=== PATIENT | male | born 1935 | race Caucasian/White ===

== ENCOUNTER 2017-10-11 06:40 | Day surgery (SDC) ==
[2017-10-11] MEDS ORDERED: LIDOCAINE 1% 20 ML MDV ID ONE (07:10)
[2017-10-11] MEDS ORDERED: ZOFRAN 4 MG/2 ML IVP STA (07:18)
[2017-10-11] MEDS ORDERED: ZOFRAN 4 MG/2 ML IVP ONE (07:19)
[2017-10-11] MEDS ORDERED: VERSED ONE (10:28)
[2017-10-11] MEDS ORDERED: DIPRIVAN 20 ML VIAL IVP ONE (10:28)
[2017-10-11 11:27] VITALS: BP 124/67; TEMP 98.4
--- NOTE | 2017-10-11 15:46 | OP ---
INDICATIONS FOR PROCEDURE: 82-year-old gentleman presents for colonoscopy exam. He was having some right flank pain. He last had a colonoscopy in 2001. MEDICATIONS: SEE ANESTHESIA NOTES. PROCEDURE: COLONOSCOPY. REPORT: The risks, benefits, alternatives and limitations were discussed in detail with the patient. Informed consent was obtained. After adequate sedation was achieved, a digital rectal exam revealed good tone, no masses. The colonoscope was introduced into the rectum and advanced under direct visual guidance to the cecum. The cecum was identified by the appendiceal orifice and IC valve. I then slowly withdrew the scope in a circumferential manner examining the mucosa quite carefully. I looked on the proximal and distal side of folds and flexures as best as possible. I was able to retroflex the scope in the right colon and the left colon to increase visualization. The colonic mucosa was unremarkable except for a couple of diverticula in the ascending colon and a couple diverticula noted in the sigmoid colon. No other abnormalities were noted including on retroflex view of the anal canal. The prep was good. The withdrawal time was 6 minutes and 6 seconds. The patient tolerated the procedure well with stable vital signs and pulse oximetry throughout. IMPRESSION: 1. NORMAL COLONOSCOPY EXAM RECOMMENDATIONS: 1. Future colonoscopies on an as needed only basis. 2. No further GI investigation. 3. Of note, prior to his examination today while in the holding area, abdominal discomfort similar to his prior pain he complained of. He did not catheterize himself this morning after giving the IV fluids. In preop his abdominal discomfort became worse. He was subsequently catheterized with over 800 cc of urine being obtained and his abdominal pain subsided thus, inadequate bladder emptying may be the source of his abdominal discomfort. I reinforced the need to continue with the self-catheterizations. 4. One thing we also discussed along with his prior to colonoscopy was his pancreatic cyst. We discussed the differential diagnosis of pancreatic cyst and possible cancer risk with the cyst. He declines ever having surgical intervention given his advanced age and health thus he declines surveillance of the cyst. We discussed the risks, benefits and alternatives of surveillance along with pancreatic surgery. He expressed good understanding and he would not want that intervention. He had been thinking about this since our office visit and he wanted to express his thoughts today. 5. Will see him back in the office as needed. cc: Dr. Dora MUKHERJEE
== END 2017-10-11 11:44 | disposition home or self-care (01) ==
LOC: SURG 06:40
PROVIDERS: ATTEND Internal Medicine Gastroenterology
DX: R10.9 Unspecified abdominal pain (principal); K86.2 Cyst of pancreas; N32.89 Other specified disorders of bladder; Z96.0 Presence of urogenital implants

== ENCOUNTER 2018-02-06 15:46 | Outpatient (CLI) | END 2018-02-06 15:47 | disposition home or self-care (01) | LOC: CAR 15:46 | PROVIDERS: ATTEND Family Medicine | DX: R42 Dizziness and giddiness (principal); R53.1 Weakness; R53.83 Other fatigue; Z85.51 Personal history of malignant neoplasm of bladder; Z78.9 Other specified health status | CPT/HCPCS: 36415; 80053; 81001; 84436; 84443; 84479; 85025; 87086; 93005; 93010 ==

== ENCOUNTER 2018-06-20 11:32 | Outpatient (CLI) ==
--- NOTE | 2018-06-20 14:07 | US ---
Exam: Ellsworth-scale and color ultrasonographic evaluation of the carotid arteries with duplex and spect ral Doppler waveform characterization. Comparison: None available. Reason for exam: Dizziness. FINDINGS: Atheromatous plaque is seen in the right common and proximal internal carotid arteries. Right ECA measures 0.6 meters per second Right CCA measures 0.6 / 0.1 meters per second. Right internal carotid artery peak systolic velocity measures 1 meter per second Right internal carotid artery/CCA PSV ratio measures 1.5 Right internal carotid artery end-diastolic velocity measures 0.2 meters per second There is normal antegrade right vertebral artery flow. There is a moderate amount of atheromatous plaque seen in the distal common carotid artery and proxim al left internal carotid artery at the level of the bulb. Left ECA measures 0.5 cm/sec Left CCA measures 0.7 / 0.1 cm/sec. Left internal carotid artery peak systolic velocity measures 0.6 meters per second Left internal carotid artery/CCA PSV ratio measures 0.8 Left internal carotid artery end-diastolic velocity measures 0.1 meters per second There is normal left antegrade vertebral artery flow. Impression: 1. No significant stenotic disease is seen by peak systolic velocity measurements in either the right or left internal carotid arteries. 2. Moderate amount of atheromatous plaque is seen in the proximal left internal carotid artery by gr ay scale imaging. 3. There is normal antegrade vertebral artery flow bilaterally.
== END 2018-06-20 11:33 | disposition home or self-care (01) ==
LOC: RAD 11:32
PROVIDERS: ATTEND Family Medicine
DX: R53.1 Weakness (principal); R42 Dizziness and giddiness; R06.02 Shortness of breath; R09.89 Other specified symptoms and signs involving the circulatory and respiratory systems; D64.9 Anemia, unspecified; N18.3 Chronic kidney disease, stage 3 (moderate); R79.89 Other specified abnormal findings of blood chemistry
CPT/HCPCS: 36415; 80053; 82607; 84443; 85025; 93005; 93010

== ENCOUNTER 2018-06-23 15:52 | Outpatient (RCR) ==
--- NOTE | 2018-06-27 12:39 | RS.OPPTEV2 ---
Date of Note: 06/23/18 Visit #: 1 Date of Evaluation: 06/23/18 Payer Source: Insurance Surgery Performed?: No Treatment Diagnosis: weakness, dizziness History of Condition/Mechanism of Injury:: pt states that he fell approx 6 weeks ago. pt lives with . pt reports that he is dizzy all the time. Prior Level of Function.....Patient was independent with: ADL's, Self Care, Caregiving, Ambulation/Mobility, Community Integration/Access Functional Limitations: Pushing, Pulling, Lifting, Carrying, Standing, Bending, Squatting, Ambulation, Community Access/Integration Current Subjective/complaints:: pt states that he is dizzy all the time. He reports that MD is doing more tests to check cardiac status due to dizziness. pt reports that he is still driving. Treatment Side (optional): N/A *Precautions: fall precautions Medical History Medical History: Hypertension, Arthritis, Cancer (bladder) Smoking Status: Never smoker Diagnostic Testing/Imaging:: pt has undergone testing per MD. Hx Home Medications: sodium bicarbonate, pepcid Patient's Goals: get stronger and decrease dizziness Functional Outcome Measure Dynamic Gait: 14 - G Codes & Severity Modifier G Codes & Modifier: mobility walking and moving around: CL. mobility walking and moving around CJ Source of G Code score: gait dynamic index Observation - Observation Inspection: slight nystagmus noted with cervical ext with head to right Posture: Forward Head, Rounded Shoulders, Increased Thoracic Kyphosis, Decreased Lumbar Lordosis Handedness: Right Gait - Gait Pattern General Gait Pattern Observation: Ataxic Gait, Crouched Gait Gait Comments: pt amb with flexed posture, decreased step length with ataxic gait pattern with decreased heel strike/toe off pattern. General Range of Motion: BUE WFL's. BLE WFL's Muscle Strength: BUE strength 4+/5. BLE strength 4/5 hip flex, 4+/5 knee flex, 4+/5 ankle Df/PF Sensation - Sensation Right Upper Extremity: Intact/Normal Left Upper Extremity: Intact/Normal Right Lower Extremity: Intact/Normal Left Lower Extremity: Intact/Normal Balance - Sitting Balance Static Sitting Balance: Good Dynamic Sitting Balance: Fair - Standing Balance Static Standing Balance: Fair Dynamic Standing Balance: Poor - Comments Balance Assessment Comments: dyn gait index which is consistent with mod risk of falls. pt c/o increased dizziness with head turns as well as sup to sit. pt with increased dizziness with cervical flex, Interventions - Exercise/Activities/Manual Therapy Exercises/Activities: pt performed AP, resisted hip abd, isometric hip add, LAQ , seated hip flex with green t band. Manual Therapy: n/a HOME EXERCISE PROGRAM: pt given written HEP including: isometric hip add, AP,LAQ , seated hip flex, resisted hip abd. pt given green theraband - Charges Timed Code Treatment Minutes: 51 Total Treatment Time: 62 Procedures billed for this date of service:: eval med EVALUATION COMPLEXITY LEVEL EVALUATION COMPLEXITY LEVEL: HISTORY: Medium (HTN, OA, ataxia), EXAM OF BODY SYSTEMS: Medium (balance, gait, strength, dizziness), CLINICAL PRESENTATION: Medium (evolving), CLINICAL DECISION MAKING: Medium Assessment Assessment: pt presents with decreased strength, balance as well as gait ataxia. pt is at high risk of falls per dyn gait index scale. Feel pt would benefit from skilled PT for therex for LE strengthening, balance, gait training to improve functional mobility and decrease risk of falls. Patient Education: Home Exercise Program, Education of Plan of Care Rehab Potential: Good Short Term Goals Goal #1: pt demonstrate improved strength BLE 4 to 4+/5 Goal to be met by: 07/07/18 Goal #2: pt amb in dept with no loss of balance amb around and stepping over objects Goal to be met by: 07/07/18 Goal #3: Improve dyn stand balance as noted by dyn gait index score 19/24 Goal to be met by: 07/07/18 Goal #4: pt independent with initial HEP Goal to be met by: 07/07/18 [employer] Goals Goal #1: dyn gait index score 21/24 to be consistent with low risk of falls. Goal to be met by: 07/21/18 Goal #2: pt amb community distances with no LOB Goal to be met by: 07/21/18 Goal #3: no reports of falls at home, improved ability to perform tasks at home Goal to be met by: 07/21/18 Goal #4: pt able to amb with head turns with no LOB Goal to be met by: 07/21/18 Plan - Treatment to be Provided Procedures: Therapeutic Exercises, Therapeutic Activity, Gait Training, Patient Education Modalities: No Modalities - Treatment Plan Frequency: 2 X week Duration: 4 weeks ORDER # VISITS AND/OR THROUGH DATE: 07/21/18 - Treatment Code (1) Ataxia Code(s): R27.0 - ATAXIA, UNSPECIFIED (2) Muscle weakness Code(s): M62.81 - MUSCLE WEAKNESS (GENERALIZED) (3) At risk for falls Code(s): R29.6 - REPEATED FALLS
--- NOTE | 2018-06-28 16:15 | RS.CXNS ---
Date of scheduled appointment: 06/28/18 Type: Cancel (Patient called to reported he was not coming to therapy. Stated he was "going back to bed".)
== END 2018-07-21 23:59 ==
PROVIDERS: ATTEND Family Medicine
DX: R53.1 Weakness (principal); R42 Dizziness and giddiness; R27.0 Ataxia, unspecified; M62.81 Muscle weakness (generalized); R29.6 Repeated falls

== ENCOUNTER 2018-07-04 06:24 | Outpatient (CLI) ==
--- NOTE | 2018-07-04 12:50 | ECHO2D ---
Date of Exam: 07/04/18 Ordering Physician: Dr John Rasmussen Room #: op Reason for Echo: WEAKNESS, DIZZINESS, SHORT OF BREATH M-Mode Normal Adult Results LV Dimensions Normal Adult Results AoV Opening excursions >1.6 >1.6 LVEDD-base- 3.5-5.8 5.0 Ao root dimensions 2.0-3.7 3.8 LVESD-base- 3.1-4.6 L. Atrium dimensions 1.9-3.8 4.1 Post. Wall thickness 0.8-1.1 1.2 IV septum (thickness) 0.7-1.2 1.2 Post. Wall excursion 0.72-1.3 NORMAL Septal motion NORMAL Systolic motion R. Ventricular cavity 1.5-2.0 NORMAL LVEF 60% 71% Paradoxical septal wall motion NORMAL 2-D : 2-D M Mode Echocardiogram was performed using apical four chamber and left parasternal long and short axis views. Mitral, tricuspid and aortic valves appear to be normal. Contractility of the left ventricle seems to be normal, so is the cavity size. MILDLY ENLARGED LEFT ATRIAL CAVITY. Aortic root appears to be normal. There is no pericardial effusion. There is no thrombus noted in the left ventricular or left aortic cavity. No mitral valve prolapse noted. M-MODE: MV: NORMAL AV: NORMAL TV: NORMAL PV: CHAMBER SIZE: MILDLY ENLARGED LEFT ATRIAL CAVITY WALL MOTION: NORMAL PERICARDIUM: NORMAL INTERPRETATION: 1. BORDERLINE LEFT VENTRICULAR HYPERTROPHY WITH MILDLY ENLARGED LEFT ATRIAL CAVITY 2. NORMAL LEFT VENTRICULAR CONTRACTILITY 3. NORMAL VALVES MTDD
== END 2018-07-04 06:25 | disposition home or self-care (01) ==
LOC: CAR 06:24
PROVIDERS: ATTEND Family Medicine
DX: R53.1 Weakness (principal); R42 Dizziness and giddiness; R06.02 Shortness of breath